=== PATIENT | male | born 1990 | race Caucasian/White ===

== ENCOUNTER 2022-09-10 10:51 | Emergency (ER) | payer BC, SELFPAY ==
[2022-09-10 10:57] VITALS: BP 156/106; PULSE 97; RESP 22; O2SAT 98; BMI 41.6
--- NOTE | 2022-09-10 11:13 | ED.ANXIETY1 ---
HPI - Anxiety General Chief Complaint: Anxiety Stated Complaint: ANXIETY/DIZZINESS Time Seen by Provider: 09/10/22 11:00 Source: patient Source comment: patient Mode of arrival: walk-in Limitations: no limitations History of Present Illness HPI narrative: 31-year-old male presents for anxiety. He's had it for a few days. He had to leave work early the other day. Denies any illicit drug use. He has not had fever cough or vomiting. He feels like he can't sit still. He is not suicidal. Related Data Previous Rx's Medication Instructions Recorded lorazepam 1 mg tablet (Ativan) 1 mg PO Q8H PRN anxiety #10 tabs 09/10/22 Review of Systems ROS Narrative A ten point review of systems is negative except as noted above. PFSH PFSH Social History Smoking status: Heavy tobacco smoker Exam Narrative Exam Narrative: Nurses note and vital signs reviewed and patient is not hypoxic. General: The patient appears well and in no apparent distress. Patient is resting comfortably on cart. Skin: Warm, dry, no pallor noted. There is no rash noted. Head: Normocephalic, atraumatic Eye: Normal conjunctiva, no drainage Ears, Nose, Mouth, and Throat: oral mucosa is moist. Nares patent. Cardiovascular: Regular Rate and Rhythm Respiratory: Patient is in no distress, no accessory muscle use, lungs are clear to auscultation, no wheezing, rales or rhonchi Back: non-tender, GI: soft and nontender Musculoskeletal: The patient has no evidence of calf tenderness, no pitting edema, symmetrical pulses noted bilaterally Neurological: A&O x4, normal speech Psychiatric: Cooperative Constitutional Vital Signs, click to edit/add: Last Vital Signs Pulse 97 H 09/10/22 10:57 Resp 22 09/10/22 10:57 BP 156/106 H 09/10/22 10:57 Pulse Ox 98 09/10/22 10:57 O2 Del Method Room Air 09/10/22 10:57 Course Vital Signs Vital signs: Vital Signs Pulse Rate 97 H 09/10/22 10:57 Respiratory Rate 22 09/10/22 10:57 Blood Pressure 156/106 H 09/10/22 10:57 Pulse Oximetry 98 09/10/22 10:57 Oxygen Delivery Method Room Air 09/10/22 10:57 Pulse Rate 97 H 09/10/22 10:57 Respiratory Rate 22 09/10/22 10:57 Blood Pressure 156/106 H 09/10/22 10:57 Pulse Oximetry 98 09/10/22 10:57 Oxygen Delivery Method Room Air 09/10/22 10:57 MDM - Anxiety MDM Narrative Medical decision making narrative: the patient was given 1 mg IM Ativan and feels improved. He is discharged home with a prescription for ten 1 mg tablets. He was given a work note for today and tomorrow. Treatment diagnosis and follow-up were discussed with the patient. Differential Diagnosis Differential diagnosis: Likely panic disorder and acute anxiety Discharge Plan Discharge Chief Complaint: Anxiety Clinical Impression: Acute anxiety Patient Disposition: Home, Self-Care Time of Disposition Decision: 12:03 Condition: Good Mode of Transportation: Private Vehicle Prescriptions / Home Meds: New lorazepam [Ativan] 1 mg tablet 1 mg PO Q8H PRN (Reason: anxiety) Qty: 10 0RF Instructions: Anxiety (ED) Stand Alone Forms: Portal Instructions Referrals: Pablo Austin MD [Primary Care Provider] - 1 week
[2022-09-10] MEDS: LORAZEPAM 2 MG/ML 1 ML VIAL 1 MG IM (11:16)
[2022-09-10 12:10] VITALS: BP 138/96; PULSE 97; RESP 20; O2SAT 98
== END 2022-09-10 12:12 | disposition home or self-care (01) ==
PROVIDERS: Emergency Provider Emergency Medicine; PCP Family Medicine
DX: F41.9 Anxiety disorder, unspecified (principal); F17.210 Nicotine dependence, cigarettes, uncomplicated
CPT/HCPCS: 96372; 99284

== ENCOUNTER 2022-10-16 14:30 | Outpatient (OUT) | payer BC, SELFPAY ==
[2022-10-16 14:59] LABS: Estimated Average Glucose 143 mg/dL; Glycohemoglobin A1C 6.6 % (4.5-6.2)
[2022-10-16 15:08] LABS: Alanine Aminotransferase 61 U/L (16-63); Albumin Globulin Ratio 1.1; Albumin Level 4.4 g/dL (3.4-5.0); Alkaline Phosphatase 114 U/L (46-116); Anion Gap 11.5; Aspartate Amino Transferase 25 U/L (15-37); BUN Creatinine Ratio 11.6; Basophils Absolute Auto 0.1 10^3/uL (0.0-0.1); Basophils Percent Auto 0.7 % (0.2-2.0); Bilirubin Direct 0.1 mg/dL (0.0-0.2); Bilirubin Total 0.4 mg/dL (0.2-1.0); Calcium 9.3 mg/dL (8.5-10.1); Carbon Dioxide 26.2 mmol/L (21.0-32.0); Chloride 101 mmol/L (98-107); Chol HDL Ratio 4.4; Cholesterol 159 mg/dL (<=200); Eosinophils Absolute Auto 0.1 10^3/uL (0.0-0.7); Eosinophils Percent Auto 1.9 % (0.9-7.0); Estimated GFR (African America >60 (>=60); Estimated GFR (Non-African Ame >60 (>=60); Glucose 292 mg/dL (74-106); HDL Cholesterol 36 mg/dL (40-60); Hematocrit 44.7 % (42.0-54.0); Hemoglobin 15.7 g/dL (14.0-18.0); Immature Granulocytes Abs Auto 0.05 10^3/uL (0.00-0.03); Immature Granulocytes Pct Auto 0.7 % (0.0-0.5); Lymphocytes Percent Auto 28.4 % (20.5-60.0); Mean Corpuscular HGB Conc 35.1 g/dL (29.9-35.2); Mean Corpuscular Hemoglobin 30.6 pg (25.9-34.0); Mean Corpuscular Volume 87.1 fL (80.0-94.0); Mean Platelet Volume 10.9 fL (9.5-13.5); Monocytes Absolute Auto 0.6 10^3/uL (0.3-0.8); Monocytes Percent Auto 8.1 % (1.7-12.0); Neutrophils Absolute Auto 4.2 10^3/uL (1.4-6.5); Neutrophils Percent Auto 60.2 % (43.0-75.0); Platelet Count 365 10^3/uL (150-450); Potassium 3.7 mmol/L (3.5-5.1); Red Blood Count 5.13 10^6/uL (4.70-6.10); Red Cell Distribution Width 11.8 % (11.0-15.0); Sodium 135 mmol/L (136-145); Thyroid Stimulating Hormone 1.508 uIU/mL (0.358-3.740); Total Protein 8.4 g/dL (6.4-8.2); Triglycerides 119 mg/dL (<=150); VLDL CHOLESTEROL 23.8 mg/dL; White Blood Count 6.9 10^3/uL (4.0-11.0)
== END 2022-10-16 14:31 | disposition home or self-care (01) ==
LOC: LAB 14:30
PROVIDERS: PCP Family Medicine; Visit Provider Family Medicine
DX: Z00.00 Encounter for general adult medical examination without abnormal findings (principal)
CPT/HCPCS: 36415; 80048; 80061; 80076; 83036; 84443; 85025

== ENCOUNTER 2022-11-07 12:10 | Outpatient (OUT) | payer BC, SELFPAY | END 2022-11-07 12:11 | disposition home or self-care (01) | LOC: CR 12:11 | PROVIDERS: PCP Family Medicine; Visit Provider Family Medicine | DX: E11.9 Type 2 diabetes mellitus without complications (principal) | CPT/HCPCS: G0108 ==

== ENCOUNTER 2023-02-17 17:50 | Emergency (ER) | payer BC, SELFPAY ==
[2023-02-17 17:53] VITALS: BP 157/94; PULSE 114; RESP 18; TEMP 37.2; O2SAT 98; BMI 42.8
--- NOTE | 2023-02-17 18:05 | ED.GENADUL1 ---
HPI - General Adult General Chief complaint: Upper Respiratory Infection Stated complaint: cough Time Seen by Provider: 02/17/23 17:58 Source: patient Mode of arrival: walk-in History of Present Illness HPI narrative: About a week ago the patient developed cough and congestion - nasal symptoms and some ear fullness. He said that overall the symptoms are better but his wanted him to come to the ED to be seen and evaluated - he said ti took two days to convince him to come to the ED to be seen. He denied any shortness of breath, fever, vomiting or diarrhea. He has not taken anything over the counter for this. Related Data Previous Rx's Medication Instructions Recorded lorazepam 1 mg tablet (Ativan) 1 mg PO Q8H PRN anxiety #10 tabs 09/10/22 azithromycin 250 mg tablet See Rx Instructions PO .COMPLEX #6 02/17/23 tabs ytrapjndjhrlelk-himymjztndrrjzt-HB 5 ml PO Q6H PRN cough 7 days #118 02/17/23 2 mg-30 mg-10 mg/5 mL oral syrup mL (Bromfed DM) Allergies Allergy/AdvReac Type Severity Reaction Status Date / Time No Known Drug Allergies Allergy Verified 02/17/23 17:56 PFSH PFSH Social History Smoking status: Heavy tobacco smoker Exam Narrative Exam Narrative: Nurses notes and vital signs reviewed and patient is not hypoxic. afebrile General: Slightly anxious but in no apparent distress. Skin: Warm, dry, no pallor noted. No rash. Head: Normocephalic, atraumatic. Neck: Supple, non-tender. No cervical lymphadenopathy Eye: Pupils are equal, round and EOMI. No scleral icterus. Ears, Nose, Mouth, and Throat: TM are clear, no posterior oropharynx erythema. Mild nasal mucosal hypertrophy, uvula is mid-line. Oral mucosa is moist Cardiovascular: Tachycardia. Respiratory: No accessory muscle use or respiratory distress. Lungs are clear to auscultation, no wheezing, rales or rhonchi Musculoskeletal: normal ROM Neurological: A&O x4. No cranial nerve dysfunction observed. No truncal ataxia. Moves all extremities. Sensation intact. Psychiatric: Cooperative and interactive. Normal mood and affect. Constitutional Vital Signs, click to edit/add: Last Vital Signs Temp 98.9 F 02/17/23 17:53 Pulse 114 H 02/17/23 17:53 Resp 18 12/16/23 17:53 BP 157/94 H 02/17/23 17:53 Pulse Ox 98 02/17/23 17:53 O2 Del Method Room Air 02/17/23 17:53 Course Vital Signs Vital signs: Vital Signs Temperature 98.9 F 02/17/23 17:53 Pulse Rate 114 H 02/17/23 17:53 Respiratory Rate 18 02/17/23 17:53 Blood Pressure 157/94 H 02/17/23 17:53 Pulse Oximetry 98 02/17/23 17:53 Oxygen Delivery Method Room Air 02/17/23 17:53 Temperature 98.9 F 02/17/23 17:53 Pulse Rate 114 H 02/17/23 17:53 Respiratory Rate 18 02/17/23 17:53 Blood Pressure 157/94 H 02/17/23 17:53 Pulse Oximetry 98 02/17/23 17:53 Oxygen Delivery Method Room Air 02/17/23 17:53 Medical Decision Making MDM Narrative Medical decision making narrative: Patient with tachycardia and symptoms and signs consistent with upper respiratory infection. No chest pain or shortness of breath. He told me that is afraid of hospitals and gets very anxious while in them. Patient discharged home with prescriptions for bromfed syrup and azithromycin. Discharge Plan Discharge Chief Complaint: Upper Respiratory Infection Clinical Impression: Upper respiratory infection Patient Disposition: Home, Self-Care Time of Disposition Decision: 18:09 Prescriptions / Home Meds: New azithromycin 250 mg tablet See Rx Instructions .ROUTE .COMPLEX Qty: 6 0RF Rx Instructions: For 250 mg dose pack: take 500 mg today (day 1), then 250 mg for 4 days (days 2-5) nkrhdngkhduftpt-trcsdmqxk-NM [Bromfed DM] 2-30-10 mg/5 mL syrup 5 ml PO Q6H PRN (Reason: cough) 7 Days Qty: 118 0RF No Action lorazepam [Ativan] 1 mg tablet 1 mg PO Q8H PRN (Reason: anxiety) Qty: 10 0RF Instructions: Upper Respiratory Infection (ED) Stand Alone Forms: Portal Instructions Referrals: Pablo Austin MD [Primary Care Provider] - 1 week
== END 2023-02-17 18:17 | disposition home or self-care (01) ==
PROVIDERS: Emergency Provider Emergency Medicine; PCP Family Medicine
DX: J06.9 Acute upper respiratory infection, unspecified (principal); F17.210 Nicotine dependence, cigarettes, uncomplicated
CPT/HCPCS: 99283

== ENCOUNTER 2023-12-25 15:25 | Outpatient (OUT) | payer BC, SELFPAY ==
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
[2023-12-25 16:18] LABS: Basophils Percent Auto 0.5 % (0.2-2.0); Eosinophils Absolute Auto 0.2 10^3/uL (0.0-0.7); Eosinophils Percent Auto 2.3 % (0.9-7.0); Hematocrit 44.4 % (42.0-54.0); Hemoglobin 15.2 g/dL (14.0-18.0); Immature Granulocytes Abs Auto 0.02 10^3/uL (0.00-0.03); Immature Granulocytes Pct Auto 0.3 % (0.0-0.5); Lymphocytes Absolute Auto 2.4 10^3/uL (1.2-3.8); Lymphocytes Percent Auto 32.3 % (20.5-60.0); Mean Corpuscular HGB Conc 34.2 g/dL (29.9-35.2); Mean Corpuscular Hemoglobin 30.5 pg (25.9-34.0); Mean Platelet Volume 10.9 fL (9.5-13.5); Monocytes Absolute Auto 0.8 10^3/uL (0.3-0.8); Monocytes Percent Auto 11.4 % (1.7-12.0); Neutrophils Absolute Auto 3.9 10^3/uL (1.4-6.5); Neutrophils Percent Auto 53.2 % (43.0-75.0); Platelet Count 352 10^3/uL (150-450); Red Blood Count 4.99 10^6/uL (4.70-6.10); Red Cell Distribution Width 11.7 % (11.0-15.0); White Blood Count 7.4 10^3/uL (4.0-11.0)
[2023-12-25 16:24] LABS: Estimated Average Glucose 140 mg/dL; Glycohemoglobin A1C 6.5 % (4.5-6.2)
[2023-12-25 16:28] LABS: Microalbumin Urine Random <1.3 mg/dL (<=30.0)
[2023-12-25 16:42] LABS: Alanine Aminotransferase 80 U/L (16-63); Albumin Level 3.7 g/dL (3.4-5.0); Alkaline Phosphatase 131 U/L (46-116); Anion Gap 11.5; Aspartate Amino Transferase 25 U/L (15-37); BUN Creatinine Ratio 10.6; Bilirubin Direct 0.1 mg/dL (0.0-0.2); Bilirubin Total 0.3 mg/dL (0.2-1.0); Calcium 9.2 mg/dL (8.5-10.1); Carbon Dioxide 27.4 mmol/L (21.0-32.0); Chloride 105 mmol/L (98-107); Chol HDL Ratio 4.3; Cholesterol 192 mg/dL (<=200); Estimated GFR (African America >60 (>=60 mL/min/1.73m^2); Estimated GFR (Non-African Ame >60 (>=60 mL/min/1.73m^2); Globulin 3.8 g/dL; Glucose 233 mg/dL (74-106); HDL Cholesterol 45 mg/dL (40-60); LDL Cholesterol Calculated 123.6 mg/dL; Potassium 3.9 mmol/L (3.5-5.1); Sodium 140 mmol/L (136-145); Thyroid Stimulating Hormone 2.158 uIU/mL (0.358-3.740); Total Protein 7.5 g/dL (6.4-8.2); Triglycerides 117 mg/dL (<=150); VLDL CHOLESTEROL 23.4 mg/dL
== END 2023-12-25 15:26 | disposition home or self-care (01) ==
PROVIDERS: PCP Family Medicine; Visit Provider Family Medicine
DX: Z00.00 Encounter for general adult medical examination without abnormal findings (principal); E11.65 Type 2 diabetes mellitus with hyperglycemia
CPT/HCPCS: 36415; 80048; 80061; 80076; 82043; 83036; 84443; 85025

== ENCOUNTER 2024-06-02 12:27 | Outpatient (OUT) | payer BC, SELFPAY ==
[2024-06-02 13:13] LABS: Estimated Average Glucose 146 mg/dL; Glycohemoglobin A1C 6.7 % (4.5-6.2)
== END 2024-06-02 12:28 | disposition home or self-care (01) ==
LOC: LAB 12:28
PROVIDERS: PCP Family Medicine; Visit Provider Family Medicine
DX: E11.65 Type 2 diabetes mellitus with hyperglycemia (principal)
CPT/HCPCS: 36415; 83036

== ENCOUNTER 2024-12-23 16:12 | Outpatient (OUT) | payer BC, SELFPAY ==
--- OUTSIDE RECORDS SUMMARY | 2024-12-23 16:15 | XMS_ITS | Clinical Summary ---
Author Organization [facility] Address [address] [place] [address] Care Team Providers Care Door Frame Assembler Machine Name Role Phone Pablo Austin MD Primary Care Provider [phone] Allergies No known active allergies Medications MedicationSigDispense QuantityRefillsLast FilledStart DateEnd DateStatus FLUoxetine (PROzac) 20 MG tablet Indications:AMADOR (generalized anxiety disorder)Take 1 tablet (20 mg) by mouth Daily 30 tablet 5Active Blood Glucose Monitoring Suppl (Blood Glucose Monitor System) w/Device kit Indications:Type 2 diabetes mellitus with hyperglycemia, without long-term current use of insulin (HCC)1 each Daily 1 kit 5Active Glucose Blood (Blood Glucose Test Strips 333) strip Indications:Type 2 diabetes mellitus with hyperglycemia, without long-term current use of insulin (HCC)1 each by In Vitro route Daily 50 strip 1105Active Active Problems ProblemNoted DateDiagnosed DateType 2 diabetes mellitus with hyperglycemia, without long-term current use of xmjhghm4312/03/2023 Assessment & Plan (05/14/2024 2:31 PM EDT): Not checking BS and due for A1C. Stick to ADA diet and limit carbs. Assessment & Plan (12/03/2023 2:22 PM EDT): Not checking BS and due for A1C. Stick to ADA diet and limit carbs. Gastroesophageal reflux disease without bztdrdyhofx59/30/2024Benign essential cpfohevnkirq07/30/2024 Assessment & Plan (05/14/2024 2:28 PM EDT): BP elevated and need to monitor away from office. Discussed DASH diet. Assessment & Plan (12/03/2023 2:21 PM EDT): BP normal and monitor PRN. AMADOR (generalized anxiety disorder)12/03/2023 Assessment & Plan (05/14/2024 2:30 PM EDT): Symptoms controlled with medication and monitor. Assessment & Plan (12/03/2023 2:21 PM EDT): Symptoms stable and monitor. Class 3 severe obesity due to excess calories with serious comorbidity and body mass index (BMI) of40.0 to 44.9 in adult12/03/2023 Assessment & Plan (05/14/2024 2:32 PM EDT): Weight loss indicated. Assessment & Plan (12/03/2023 2:23 PM EDT): Weight loss indicated. ADD (attention deficit disorder) without ouaersoljzoni12/30/2024 Assessment & Plan (05/14/2024 2:28 PM EDT): Mild symptoms but tolerable without medication and monitor. Assessment & Plan (12/03/2023 2:21 PM EDT): Symptoms controlled with strattera and continue. Annual physical exam12/03/2023 Resolved Problems ProblemNoted DateDiagnosed DateResolved DateDental nnkhnuc24 Assessment & Plan (12/03/2023 2:21 PM EDT): Complete clindamycin . Gargle with warm salt water. Follow with dentist. Social History Tobacco UseTypesPacks/DayYears UsedDateSmoking Tobacco: NeverSmokeless Tobacco: Never Tobacco Cessation:Counseling Given: Not Answered Sex and Gender InformationValueDate RecordedSex Assigned at BirthNot on file Legal ZgaCylk2205/17/2022 11:19 PM EDTGender IdentityNot on fileSexual Orientation Not on file Last Filed Vital Signs Vital SignReadingTime TakenCommentsBlood Capehtni152/9405/14/2024 1:53 PM EDT Czznc452105/14/2024 1:53 PM CJDQpqgitkyjlm76.4 ??C (97.5 ??F)05/14/2024 1:53 PM EDTRespiratory Ezwl305705/14/2024 1:53 PM EDTOxygen Brkszwjqgy84%05/14/2024 1:53 PM EDTInhaled Oxygen Concentration--Hstnvk484 kg (241 lb)05/14/2024 1:53 PM EDT Nujkfu836.1 cm (5' 5 )05/14/2024 1:53 PM EDTBody Mass Index40. 1:53 PM EDT Plan of Treatment Not on file Insurance Care Teams Team MemberRelationshipSpecialtyStart DateEnd Date Pablo Austin MD PCP - GeneralFamily Medicine12/03/23
--- OUTSIDE RECORDS SUMMARY | 2024-12-23 16:15 | XMS_ITS | Clinical Summary ---
Author Organization [facility] Address [id number] [place] [address] Care Team Providers Care Trade Recruiter Name Role Phone John Little DO Primary Care Provider Allergies No known active allergies Medications No known medications Social History Tobacco UseTypesPacks/DayYears UsedDateSmoking Tobacco: NeverSmokeless Tobacco: CurrentChildcareAnswerDate NlyzzfnvFdxftnahgYretypq01/13/2019EmploymentAnswer Date WqxknktrDxaytkppnbQtxyllw64/13/2019Purpose - LifeAnswerDate RecordedPurpose and direction in jibrWkyroei82/11/2021ex and Gender InformationValueDate RecordedSex Assigned at BirthNot on fileLegal NfpGarp61/29/2018 2:03 PM EST Gender IdentityNot on fileSexual OrientationNot on file Last Filed Vital Signs Vital SignReadingTime TakenCommentsBlood Siodlkjl156/9203/02/2018 2:27 PM EST Mvmdt88514/29/2018 2:27 PM GYVRmlyptkxhor22.9 ??C (98.4 ??F)03/02/2018 2:27 PM ESTRespiratory Myqs2565 2:27 PM ESTOxygen Gpyivccmqi77%03/02/2018 2:27 PM ESTInhaled Oxygen Concentration--Cqoyez724.6 kg (235 lb)03/02/2018 2:27 PM WEAZodrex499.1 cm (5' 5 )03/02/2018 2:27 PM ESTBody Mass Index39.111 2:27 PM EST Plan of Treatment Not on file Medical Devices Not on file Insurance Care Teams Team MemberRelationshipSpecialtyStart DateEnd Date John Little DO PCP - Qulvxan19/29/18
--- OUTSIDE RECORDS SUMMARY | 2024-12-23 16:15 | XMS_ITS | CCD ---
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 Mental Status: He is alert. Assessment/Plan Problem List Items Addressed This Visit Type 2 diabetes mellitus with hyperglycemia, without long-term current use of insulin (CMS/HCC) - Primary Not checking BS and due for A1C. Stick to ADA diet and limit carbs. Relevant Orders Hemoglobin A1c Benign essential hypertension (CMS/HCC) BP elevated and need to monitor away from office. Discussed DASH diet. AMADOR (generalized anxiety disorder) (CMS/HCC) Symptoms controlled with medication and monitor. ADD (attention deficit disorder) without hyperactivity Mild symptoms but tolerable without medication and monitor. [facility] of Present illness Narrative 12-03-2023 Note Date & [id number] History of Present illness Narrative* Pablo Middleton MD - 12/03/2023 2:23 PM EDTAssociated Problem(s): Morbid obesity due to excess calories (CMS/HCC) Weight loss indicated. * Pablo Middleton MD - 12/03/2023 2:22 PM EDTAssociated Problem(s): Type 2 diabetes mellitus with hyperglycemia, without long-term current use of insulin (CMS/HCC) Not checking BS and due for A1C. Stick to ADA diet and limit carbs. * Pablo Middleton MD - 12/03/2023 2:21 PM EDTAssociated Problem(s): AMADOR (generalized anxiety disorder) (CMS/HCC) Symptoms stable and monitor. * Pablo Middleton MD - 12/03/2023 2:21 PM EDTAssociated Problem(s): Dental abscess Complete clindamycin . Gargle with warm salt water. Follow with dentist. * Pablo Middleton MD - 12/03/2023 2:21 PM EDTAssociated Problem(s): Benign essential hypertension (CMS/HCC) BP normal and monitor PRN. * Pablo Middleton MD - 12/03/2023 2:21 PM EDTAssociated Problem(s): ADD (attention deficit disorder) without hyperactivity Symptoms controlled with strattera and continue. * Pablo Middleton MD - 12/03/2023 1:45 PM EDT Images from the original note were not included. Subjective Patient ID: Gurmeet Moseley is a 33 y.o. male who presents for Dental Pain. Follow up dental pain, DM, HTN, ADD, and anxiety. Recently with dental abscess and pain. Gums swollen and painful. On clindamycin and improved. Not scheduled with dentist. Not checking BS away from office. Changed diet and cut back on pop. Tries to stick to ADA diet and limit carbs. Denies signs ofelevated BS such as polyuria, polyphagia or polydipsia. Not checking BP away from office and slightly elevated today. ADD controlled with strattera. Able to stay focused and complete work. Not distracted or watching others. Able to follow directions. Anxiety stable. Not as stressed out or overwhelmed. Not as nervous or worry as much. Not as chang or irritable. Review of Systems Constitutional: Negative for fatigue. Respiratory: Negative for cough, shortness of breath and wheezing. Cardiovascular: Negative for chest pain and palpitations. Gastrointestinal: Negative for abdominal pain, diarrhea, nausea and vomiting. Genitourinary: Negative for dysuria. Objective Physical Exam Constitutional: General: He is not in acute distress. Appearance: Normal appearance. HENT: Head: Normocephalic. Right Ear: Tympanic membrane and ear canal normal. Left Ear: Tympanic membrane and ear canal normal. Eyes: Extraocular Movements: Extraocular movements intact. Pupils: Pupils are equal, round, and reactive to light. Cardiovascular: Rate and Rhythm: Normal rate and regular rhythm. Heart sounds: No murmur heard. No friction rub. No gallop. Pulmonary: Breath sounds: Normal breath sounds. No wheezing, rhonchi or rales. Abdominal: General: Bowel sounds are normal. There is no distension. Palpations: Abdomen is soft. Tenderness: There is no abdominal tenderness. There is no guarding or rebound. Musculoskeletal: Left lower leg: No edema. Neurological: Mental Status: He is alert. Assessment/Plan Problem List Items Addressed This Visit Type 2 diabetes mellitus with hyperglycemia, without long-term current use of insulin (CMS/HCC) - Primary Not checking BS and due for A1C. Stick to ADA diet and limit carbs. Relevant Orders Albumin, urine, random Benign essential hypertension (CMS/HCC) BP normal and monitor PRN. AMADOR (generalized anxiety disorder) (CMS/HCC) Symptoms stable and monitor. ADD (attention deficit disorder) without hyperactivity Symptoms controlled with strattera and continue. Dental abscess Complete clindamycin . Gargle with warm salt water. Follow with dentist. Annual physical exam Relevant Orders Hemoglobin A1c Basic metabolic panel CBC and differential Hepatic function panel Lipid panel TSH [facility] Evaluation note Note Date & TypeNoteFacilityEvaluation noteNo assessment information available [facility] Work Phone: Evaluation note Note Date & TypeNoteFacilityEvaluation note* Diagnosis Type 2 diabetes mellitus with hyperglycemia, without long-term current use of insulin (CMS/HCC)- Primary Benign essential hypertension (CMS/HCC) Essential hypertension, benign ADD (attention deficit disorder) without hyperactivity Attention deficit disorder without mention of hyperactivity Dental abscess Periapical abscess without sinus Annual physical exam Routine general medical examination at a health care facility AMADOR (generalized anxiety disorder) ([facility]) Generalized anxiety disorder Morbid obesity due to excess calories ([facility]) documented in this encounter [facility] Evaluation note Note Date & TypeNoteFacilityEvaluation note* Diagnosis Type 2 diabetes mellitus with hyperglycemia, without long-term current use of insulin ([facility])- Primary Benign essential hypertension ([facility]) Essential hypertension, benign ADD (attention deficit disorder) without hyperactivity Attention deficit disorder without mention of hyperactivity Dental abscess Periapical abscess without sinus Annual physical exam Routine general medical examination at a health care facility AMADOR (generalized anxiety disorder) ([facility]) Generalized anxiety disorder Morbid obesity due to excess calories ([facility]) AMADOR (generalized anxiety disorder) ([facility])- Primary Generalized anxiety disorder documented in this encounter [facility] Evaluation note Note Date & TypeNoteFacilityEvaluation note* Diagnosis Type 2 diabetes mellitus with hyperglycemia, without long-term current use of insulin ([facility])- Primary Benign essential hypertension ([facility]) Essential hypertension, benign ADD (attention deficit disorder) without hyperactivity Attention deficit disorder without mention of hyperactivity Dental abscess Periapical abscess without sinus Annual physical exam Routine general medical examination at a health care facility AMADOR (generalized anxiety disorder) ([facility]) Generalized anxiety disorder Morbid obesity due to excess calories ([facility]) Other specified behavioral and emotional disorders with onset usually occurring in childhood and adolescence documented in this encounter [facility] Evaluation note Note Date & TypeNoteFacilityEvaluation note* Diagnosis Type 2 diabetes mellitus with hyperglycemia, without long-term current use of insulin ([facility])- Primary Benign essential hypertension ([facility]) Essential hypertension, benign ADD (attention deficit disorder) without hyperactivity Attention deficit disorder without mention of hyperactivity Dental abscess Periapical abscess without sinus Annual physical exam Routine general medical examination at a health care facility AMADOR (generalized anxiety disorder) ([facility]) Generalized anxiety disorder Morbid obesity due to excess calories ([facility]) Type 2 diabetes mellitus with hyperglycemia, without long-term current use of insulin ([facility])- Primary Benign essential hypertension ([facility]) Essential hypertension, benign AMADOR (generalized anxiety disorder) ([facility]) Generalized anxiety disorder ADD (attention deficit disorder) without hyperactivity Attention deficit disorder without mention of hyperactivity documented in this encounter [facility] Evaluation note Note Date & TypeNoteFacilityEvaluation note* Diagnosis Type 2 diabetes mellitus with hyperglycemia, without long-term current use of insulin (HCC)- Primary Benign essential hypertension Essential hypertension, benign ADD (attention deficit disorder) without hyperactivity Attention deficit disorder without mention of hyperactivity Dental abscess Periapical abscess without sinus Annual physical exam Routine general medical examination at a health care facility AMADOR (generalized anxiety disorder) Generalized anxiety disorder Morbid obesity due to excess calories ([facility]) Type 2 diabetes mellitus with hyperglycemia, without long-term current use of insulin (HCC)- Primary Benign essential hypertension Essential hypertension, benign AMADOR (generalized anxiety disorder) Generalized anxiety disorder ADD (attention deficit disorder) without hyperactivity Attention deficit disorder without mention of hyperactivity Type 2 diabetes mellitus with hyperglycemia, without long-term current use of insulin ([facility])- Primary documented in this encounter [facility] Evaluation note Note Date & TypeNoteFacilityEvaluation note* Diagnosis Onset Date Resolution Status Admit Date Annual physical exam acuteSept2024 8:57amBenign essential hypertensionacuteSept2024 8:57amGAD (generalized anxiety disorder)acutept2024 8:57amType 2 diabetes mellitus with hyperglycemia, without long-term current use acuteSept2024 8:57am [facility] Work Phone: Reason for referral (narrative) Note Date & TypeNoteFacilityReason for referral (narrative)No reason for referral information availableMckitrick Hospital Work Phone: Summary Purpose Family History No Family History Records FoundNo Family History Records FoundNo Family History Records Found Advance Directives Advance Directive Response Recorded Date/ Time Advance Directives No June 06 11:26am Chief Complaint and Reason for Visit Chief Complaint xray Chief Complaint Ear pain drainage, b ilateral Chief Complaint Admit Date 6M November 17, 2024 8:57am Reason for Visit Admit Date Annual physical exam November 17 8:57am Benign essential hypertension November 17, 2024 8:57am AMADOR (generalized anxiety disorder) Septe [facility] 2024 8:57am Type 2 diabetes mellitus wit h hyperglycemia, without long-term current use November 17, 2024 8:57am Additional Source Comments (unrecognized sect ion and content) No Status Records FoundNo Status Records FoundNo Status Records Found INFORMATION SOURCE (unrecogn ized section and content) DATE CREATED AUTHOR 12/28/2020 [facility] DATE CREATED AUTHOR AUTHOR'S ORGANIZ ATION 12/15/2021 [facility] DATE CREATED AUTHOR AUTHOR'S ORGANIZ ATION 05/17/2024 [facility] EPIC Care Teams (unrecognized sec tion and content) Team Status: Inactive Member Role Status Dates Newton Flores Jr, DO Attending Provider Active Team Status: Active Member Role Status Dates Pablo Middleton MD Primary Care Provider Active Team Status: Inactive Member Role Status Dates Sayda Nesbitt NP-C Attending Provider Active S tart: June 07, 2023 End: June 07, 2023Mar Eva Middletonmaryuli Care ProviderActiveStart: June 07, 2023 End: June 07, 2023Team MemberRelationshipSpecialtyStart DateEnd Date Pablo Middleton MD [address] [place] [phone] PCP - GeneralFamily Medicine12/03/23Team MemberRelationshipSpecialtyStart DateEnd Date Pablo Middleton MD [address] [place] [phone] PCP - GeneralFamily Medicine12/03/23Team MemberRelationshipSpecialtyStart DateEnd Date Pablo Middleton MD [address] [place] [phone] PCP - GeneralFamily Medicine12/03/23Team MemberRelationshipSpecialtyStart DateEnd Date Pablo Middleton MD [address] [place] [phone] PCP - GeneralFamily Medicine12/03/23 Pablo Middleton MD [address] [place] [address] PCP - [place] Ztkknlmmiv70/1/24Team MemberRelationshipSpecialtyStart DateEnd Date Pablo Middleton MD [address] [place] [address] PCP - GeneralFamily Medicine12/03/23 Pablo Middleton MD [address] [place] [address] PCP - [place] Bvygawckvd69/1/24Team MemberRelationshipSpecialtyStart DateEnd Date Pablo Middleton MD [address] [place] [address] PCP - Generalmi Medicine12/03/23 Pablo Middleton MD [address] [place] [address] PCP - [place] Ukhrhlozbt36/1/24Team MemberRelationshipSpecialtyStart DateEnd Date Pablo Middleton MD [address] [place] [address] PCP - GeneralFamily Medicine12/03/23 Pablo Middleton MD [address] [place] [address] PCP - [place] Ebbrljepxq17/1/24Team MemberRelationshipSpecialtyStart DateEnd Date Pablo Middleton MD [address] [place] [address] [facility] Team Status: Inactive Member Role Status Dates Pablo Middleton MD Primary Care Provider Active S tart: November 17, 2024 End: November 17, 2024[facility] Middleton MDAttending ProviderActiveStart: November 17, 2024 End: November 17, 2024 Goals (unrecognized section and content) Goals may be documented in a n alternate sectionGoals may be documented in an alternate sectionGoals may be documented in an alternate section Reason for Visit (unrecogniz ed section and content) ReasonCommentsDental PainReasonOnset DateCommentsMed Eexrzx2604/15/2024Reason CommentsFollow-up1m FOR RECORDS PERTAINING TO PATIENTS WHO ARE [...] BE BASED ON THE PRIMARY CLINICAL RECORDS. [employer]acent [employer] [facility]. provides no warranty or guarantee of the accuracy or completeness of information in this document.
[2024-12-23 16:31] LABS: Hematocrit 42.9 % (42.0-54.0); Hemoglobin 14.9 g/dL (14.0-18.0); Immature Granulocytes Abs Auto 0.04 10^3/uL (0.00-0.03); Immature Granulocytes Pct Auto 0.5 % (0.0-0.5); Lymphocytes Absolute Auto 3.2 10^3/uL (1.2-3.8); Mean Corpuscular HGB Conc 34.7 g/dL (29.9-35.2); Mean Corpuscular Hemoglobin 30.8 pg (25.9-34.0); Mean Corpuscular Volume 88.8 fL (80.0-94.0); Platelet Count 313 10^3/uL (150-450); Red Blood Count 4.83 10^6/uL (4.70-6.10); White Blood Count 8.9 10^3/uL (4.0-11.0)
[2024-12-23 18:00] LABS: Anion Gap 13.3; Carbon Dioxide 26.4 mmol/L (21.0-32.0); Chloride 104 mmol/L (98-107); Potassium 3.7 mmol/L (3.5-5.1); Sodium 140 mmol/L (136-145)
[2024-12-23 18:01] LABS: Blood Urea Nitrogen 16.0 mg/dL (7.0-18.0); Calcium 8.9 mg/dL (8.5-10.1); Estimated GFR (African America >60 (>=60 mL/min/1.73m^2); Estimated GFR (Non-African Ame >60 (>=60 mL/min/1.73m^2); Glucose 122 mg/dL (74-106)
[2024-12-23 18:02] LABS: Alanine Aminotransferase 64 U/L (16-63); Albumin Globulin Ratio 1.1; Albumin Level 4.1 g/dL (3.4-5.0); Alkaline Phosphatase 118 U/L (46-116); Aspartate Amino Transferase 22 U/L (15-37); Cholesterol 205 mg/dL (<=200); Globulin 3.8 g/dL; Total Protein 7.9 g/dL (6.4-8.2); Triglycerides 139 mg/dL (<=150); VLDL CHOLESTEROL 27.8 mg/dL
[2024-12-23 18:03] LABS: HDL Cholesterol 37 mg/dL (40-60); Thyroid Stimulating Hormone 2.831 uIU/mL (0.358-3.740)
== END 2024-12-23 16:13 | disposition home or self-care (01) ==
LOC: LAB 16:13
PROVIDERS: PCP Family Medicine; Visit Provider Family Medicine
DX: Z00.00 Encounter for general adult medical examination without abnormal findings (principal)
CPT/HCPCS: 36415; 80053; 80061; 83036; 84443; 85025